=== PATIENT | male | born 1990 | race Caucasian/White ===

== ENCOUNTER 2022-05-18 10:24 | Emergency (ER) | payer MEDICAID, SELFPAY ==
[2022-05-18 10:29] VITALS: BP 129/79; PULSE 82; RESP 16; TEMP 36.7; O2SAT 95; BMI 47.5
--- NOTE | 2022-05-18 11:57 | ED_ITS ---
HPI - Back Pain/Injury General Chief Complaint: Back Pain/Injury Stated Complaint: Back pain Time Seen by Provider: 05/18/22 11:27 Source: patient Mode of arrival: ambulatory Limitations: no limitations History of Present Illness HPI Narrative: 32-year-old male with a history of IV drug abuse who presents to the ER with complaints of mid back pain and right-sided back pain for the last 2 weeks. Patient reports he stood up from the couch and felt a pulling so, straining sensation in his back. Since then pain has been constant. Patient denies any radiation of pain. He denies any numbness, tingling, weakness in his extremities. No numbness described. No bowel or bladder incontinence. No fevers or chills. Patient is ambulatory No urinary symptoms Patient reports he is currently using 3 bundles of IV heroin daily. He denies any history of bacteremia, epidural abscess, osteomyelitis, endocarditis. Cara brock is currently on methadone sign 5 mg daily. He is not interested in going to detox at this time. He would be willing to talk to a continuous improvement coach. Related Data Previous Rx's Medication Instructions Recorded ibuprofen 600 mg tablet 600 mg PO Q8H PRN pain #30 tabs 05/18/22 lidocaine 5 % topical patch 1 patch topical DAILY #15 ea 05/18/22 (Lidoderm) Allergies Allergy/AdvReac Type Severity Reaction Status Date / Time No Known Allergies Allergy Verified 05/18/22 10:32 Review of Systems Review of Systems: Yes all other systems are reviewed and are negative Constitutional: Constitutional: Reports no additional constitutional complaints, Denies body ache(s), Denies chills, Denies fever(s), Denies headache(s) and Denies weakness Eyes: Eyes: Reports no additional eye complaints and Denies change in vision ENT: Reports system reviewed and no additional complaints, except as documented, Denies dizziness, Denies headache(s), Denies nasal congestion, Denies nasal discharge and Denies neck pain Cardiovascular: Cardiovascular: Reports no additional cardiovascular complaints, Denies chest pain, Denies leg edema and Denies dyspnea Respiratory: Respiratory: Reports no additional respiratory complaints, Denies cough and Denies dyspnea Gastrointestinal: Gastrointestinal: Reports no additional gastrointestinal complaints, Denies abdominal pain, Denies diarrhea, Denies nausea and Denies vomiting Genitourinary: Genitourinary: Denies urinary incontinence Musculoskeletal: Musculoskeletal: Reports no additional musculoskeletal complaints, Reports back pain, Denies arthralgias, Denies joint swelling, Denies neck pain, Denies numbness and Denies tingling Integumentary/Breasts: Skin/Breast: Reports system reviewed and no additional complaints, except as docu and Denies rash Neurologic: Reports system reviewed and no additional complaints, except as documented, Denies Abnormal speech present, Denies dizziness, Denies headache(s), Denies numbness, Denies tingling and Denies weakness PMFSH Past Medical History Attestation statement: The following information was validated with the patient. Source: old records reviewed and nursing notes reviewed Social History Social History Smoked in Last 30 Days: Yes Use of substances other than those prescribed or required for medical reasons: Yes Substance Use Type: Heroin Advance Directives: No Advance Directives Information Provided: Yes Physical Exam Vital Signs: Vital Signs: Last Vital Signs Temp 98.0 F 05/18/22 10:29 Pulse 68 05/18/22 14:14 Resp 20 05/18/22 14:14 BP 146/92 H 05/18/22 14:14 Pulse Ox 100 05/18/22 14:14 O2 Del Method Room Air 05/18/22 14:14 BMI result Body Mass Index 47.5 Const: General: cooperative, healthy appearing, comfortable and no acute distress Orientation/consciousness: patient oriented x3 Limitations: no limitations HEENT: Head: Yes normal to inspection Ears: hearing grossly normal bilaterally General nose exam: Normal external nose present Face and sinus: Yes normal facial exam Mouth: Normal oral and palatal mucosa present Throat: Yes posterior oropharynx normal Eyes: General: appearance normal, both eyes and all related structures Pupils: Equal, round and reactive pupils present Neck: Neck: Yes normal visual inspection Chest: Chest palpation & inspection: normal inspection of the chest Resp: Effort & Inspection: normal respiratory effort Auscultation: clear to auscultation bilaterally Cardio: Rate: regular rate Rhythm: regular rhythm Peripheral pulses: Peripheral pulses 2+ throughout GI: Inspection: Yes normal to inspection Palpation (GI): Soft to palpation and nontender Auscultation: normal bowel sounds : General: Yes no CVA tenderness Back/Spine/Pelvis: Other: There is tenderness over the midthoracic spine with no step-offs deformities. There is also tenderness the right thoracic soft tissue area Back: no CVA tenderness Thoracic/Lumbar Spine: thoracic and lumbar spine normal to inspection Skin: General skin exam: no rashes or lesions noted Neuro: General: patient oriented x3, no focal motor deficits and normal sensation to monofilament Cranial nerves: Yes CN's II-XII intact bilaterally, Yes Equal, round and reactive pupils present, Yes Bilaterally intact EOM present, Yes Nystagmus not present, Yes Normal facial strength present and Yes Midline tongue present Cognition (Neuro): normal cognition Speech: No Abnormal speech present Gait exam (Neuro): Normal gait present Motor exam (neuro): 5/5 motor strength present throughout Sensory Exam: Normal double simultaneous stimulation for sensation Deep tendon reflexes (DTR's): Right patellar reflex intensity grade: 2+ and Left patellar reflex intensity grade: 2+ Extrem: General: Yes normal to inspection Course Course Course Narrative: I did review the patient's labs and UA which are unremarkable. His inflammatory markers are negative. I did discuss with both the patient and my attending physician( Dr Gonzalez) at length in regards the patient. I highly doubt epidural abscess or osteomyelitis based on the patient's clinical exam and findings. I did discuss this with the patient and he is aware that he is at high risk for epidural abscess and osteomyelitis however at this time I do not believe this is what is going on. This seems more like muscle strain. I did ask the patient if he feels that he is able to return if he were to develop any worsening symptoms and he tells me he is able to do so. I did review at length any worrisome signs or symptoms of when to return to the emergency room and the patient was agreeable to this. He felt very comfortable with this plan of care and all questions were answered. Medical Decision Making Medical Decision Making MDM Narrative: 31-year-old male here with back pain for the last 2 weeks. Patient initially felt pain when he was standing from a sitting position and felt a straining sensation. There is no radiation of pain, no urinary symptoms, no neurological deficits or red flag symptoms. However, patient has history of IV drug abuse. No reports of fever. On exam patient with midthoracic pain is about or deformities. Normal neuro. Will obtain labs, UA Differential Diagnosis Differential Diagnoses: The differential diagnosis associated with the presentation includes Doubt epidural abscess with normal neurological exam with no reports of neurological red flag symptoms Renal colic, pyelonephritis, lumbar strain Lab Data MDM Lab Attestation statement: I reviewed the patient's lab results. 05/18/22 12:41 05/18/22 12:41 Labs: Lab Results 05/18/22 05/18/22 05/18/22 Range/Units 12:41 12:41 12:41 WBC 8.8 (4.8-10.8) X10*3/uL RBC 4.10 L (4.60-5.80) X10*6/uL Hgb 11.8 L (14.0-18.0) g/dl Hct 37.0 L (42.0-52.0) % MCV 90.2 (80.0-98.0) fL MCH 28.8 (27.0-33.0) pg MCHC 31.9 (31.0-36.0) g/dl RDW 13.5 (11.0-16.0) % Plt Count 214 (160-400) X10*3/uL MPV 9.7 (9.4-12.4) fL Immature Gran % (Auto) 0.6 H (0.0-0.4) % Neut % (Auto) 73.5 H (45-73) % Lymph % (Auto) 18.9 L (20-40) % [place] % (Auto) 6.2 (2-11) % Eos % (Auto) 0.3 (0-4) % Baso % (Auto) 0.5 (0-2) % Lymph # (Auto) 1.7 (1.2-4.9) X10*3/uL [place] # (Auto) 0.6 (0.1-1.2) X10*3/uL Eos # (Auto) 0.0 (0.0-0.4) X10*3/uL Baso # (Auto) 0.0 (0.0-0.2) X10*3/uL Abs Immat Gran (auto) 0.05 H (0.00-0.03) X10*3/uL Absolute Neuts (auto) 6.5 (2.0-8.3) x10*3/uL Absolute Nucleated RBC 0.000 (0.0-0.012) X10*3/uL Nucleated RBC % (auto) 0.0 (0.0-0.2) /100WBC ESR 13 (0-15) MM/HR Sodium 140 (135-145) mmol/L Potassium 4.9 (3.3-5.1) mmol/L Chloride 107 (96-108) mmol/L Carbon Dioxide 24 (22-29) mmol/L Anion Gap 14 (12-20) BUN 14 (9-16) mg/dL Creatinine 0.80 (0.5-1.4) mg/dL Estim Creat Clear Calc 224.3 Estimated GFR > 60 Random Glucose 99 (60-115) mg/dL Calcium 9.2 (8.4-10.2) mg/dL C-Reactive Protein 1.09 H (< or = 0.50) mg/dL Urine Color Urine Appearance Urine pH (5.0-9.0) Ur Specific [place] (1.005-1.025) Urine Protein (Neg-Trace) mg/dL Urine Glucose (UA) (Negative) mg/dL Urine Ketones (Negative) mg/dL Urine Blood (Negative) Urine Nitrite (Negative) Ur Leukocyte Esterase (Negative) Urine RBC (0-2) /HPF Urine WBC (0-5) /HPF Ur Squamous Epith Cells (0-2) /HPF Urine Bacteria (None Seen) Hyaline Casts (0-2) /LPF Granular Casts 05/18/22 Range/Units 12:53 WBC (4.8-10.8) X10*3/uL RBC (4.60-5.80) X10*6/uL Hgb (14.0-18.0) g/dl Hct (42.0-52.0) % MCV (80.0-98.0) fL MCH (27.0-33.0) pg MCHC (31.0-36.0) g/dl RDW (11.0-16.0) % Plt Count (160-400) X10*3/uL MPV (9.4-12.4) fL Immature Gran % (Auto) (0.0-0.4) % Neut % (Auto) (45-73) % Lymph % (Auto) (20-40) % [place] % (Auto) (2-11) % Eos % (Auto) (0-4) % Baso % (Auto) (0-2) % Lymph # (Auto) (1.2-4.9) X10*3/uL [place] # (Auto) (0.1-1.2) X10*3/uL Eos # (Auto) (0.0-0.4) X10*3/uL Baso # (Auto) (0.0-0.2) X10*3/uL Abs Immat Gran (auto) (0.00-0.03) X10*3/uL Absolute Neuts (auto) (2.0-8.3) x10*3/uL Absolute Nucleated RBC (0.0-0.012) X10*3/uL Nucleated RBC % (auto) (0.0-0.2) /100WBC ESR (0-15) MM/HR Sodium (135-145) mmol/L Potassium (3.3-5.1) mmol/L Chloride (96-108) mmol/L Carbon Dioxide (22-29) mmol/L Anion Gap (12-20) BUN (9-16) mg/dL Creatinine (0.5-1.4) mg/dL Estim Creat Clear Calc Estimated GFR Random Glucose (60-115) mg/dL Calcium (8.4-10.2) mg/dL C-Reactive Protein (< or = 0.50) mg/dL Urine Color Dark Yellow Urine Appearance Clear Urine pH 5.5 (5.0-9.0) Ur Specific [place] >= 1.030 H (1.005-1.025) Urine Protein 30 (1+) H (Neg-Trace) mg/dL Urine Glucose (UA) Negative (Negative) mg/dL Urine Ketones Trace (Negative) mg/dL Urine Blood Negative (Negative) Urine Nitrite Negative (Negative) Ur Leukocyte Esterase Negative (Negative) Urine RBC 0-2 (0-2) /HPF Urine WBC 0-5 (0-5) /HPF Ur Squamous Epith Cells 0-2 (0-2) /HPF Urine Bacteria None Seen (None Seen) Hyaline Casts 6-10 (0-2) /LPF Granular Casts Present Social Determinants IV drug abuse-declined interest in detox, did speak to disaster recovery specialist when he was in the ER Discharge Plan Discharge Clinical Impression: Thoracic back pain Patient Disposition: Home, Self-Care Instructions: Back Pain (ED) Additional Instructions: Your blood work, urine testing all is reassuring You may have strained some muscles in your back. No heavy lifting or bending Apply ice or heat to the area Follow-up with primary care doctor for any persistent symptoms We discussed that due to your substance use history your increased risk for epidural abscess which is an abscess within the spinal column and osteomyelitis which is a bone infection in the spine. At this time you have no additional findings that are concerning for this however if you developed fever, numbness/weakness/tingling in your lower extremities, numbness in your groin, incontinence of urine or stool, increase in pain please return to the emergency room so we may perform an MRI of your back Prescriptions: New lidocaine [Lidoderm] 5 % adhesive patch,medicated 1 patch topical DAILY Qty: 15 0RF Rx Instructions: leave on most painful area for up to 12 hrs ibuprofen 600 mg tablet 600 mg PO Q8H PRN (Reason: pain) Qty: 30 0RF Referrals: Physician,Unknown J [Primary Care Provider] - Stand Alone Forms: Work/School Release Interventions: ED Discharge Assessment Last Done: 05/18/22 14:15 Discharge Date/Time: 05/18/22 14:16
[2022-05-18 12:48] LABS: MANUAL DIFF FLAG NO
[2022-05-18 12:55] LABS: Basophils Percent Auto 0.5 % (0-2); Eosinophils Percent Auto 0.3 % (0-4); Hemoglobin 11.8 g/dl (14.0-18.0); Imm Gran Abs Auto 0.05 X10*3/uL (0.00-0.03); Imm Gran Pct Auto 0.6 % (0.0-0.4); Lymphocytes Absolute Auto 1.7 X10*3/uL (1.2-4.9); Lymphocytes Percent Auto 18.9 % (20-40); Mean Corpuscular HGB Conc 31.9 g/dl (31.0-36.0); Mean Corpuscular Hemoglobin 28.8 pg (27.0-33.0); Mean Corpuscular Volume 90.2 fL (80.0-98.0); Mean Platelet Volume 9.7 fL (9.4-12.4); Monocytes Absolute Auto 0.6 X10*3/uL (0.1-1.2); Monocytes Percent Auto 6.2 % (2-11); Neutrophils Absolute Auto 6.5 x10*3/uL (2.0-8.3); Neutrophils Percent Auto 73.5 % (45-73); Platelet Count 214 X10*3/uL (160-400); Red Cell Distribution Width 13.5 % (11.0-16.0); White Blood Count 8.8 X10*3/uL (4.8-10.8)
[2022-05-18 13:06] LABS: Appearance Urine Clear; Color Urine Dark Yellow; Glucose Urine UA Negative (Negative); Leukocyte Esterase Urine Negative (Negative); Nitrite Urine Negative (Negative); PH 5.5 (5.0-9.0); Specific Gravity - Urine >= 1.030 (1.005-1.025); UMIC TRIGGER UACC YES; Urine Blood Negative (Negative); Urine Ketones Trace mg/dL (Negative); Urine Protein 30 (1+) mg/dL (Neg-Trace)
[2022-05-18 13:07] LABS: Anion Gap 14 (12-20); Blood Urea Nitrogen 14 mg/dL (9-16); C Reactive Protein 1.09 mg/dL (< or = 0.50); Calcium 9.2 mg/dL (8.4-10.2); Carbon Dioxide 24 mmol/L (22-29); Chloride 107 mmol/L (96-108); Creatinine Clr Calc Pharmacy 224.3; Estimated Glomerular Filt Rate > 60; Glucose Random 99 mg/dL (60-115); Potassium 4.9 mmol/L (3.3-5.1); Sodium 140 mmol/L (135-145)
[2022-05-18 13:21] LABS: Bacteria Urine None Seen (None Seen); Granular Casts Urine Present; RBC Urine 0-2 /HPF (0-2); Squamous Epithelial Cell Urine 0-2 /HPF (0-2); WBC Urine 0-5 /HPF (0-5)
[2022-05-18 13:52] LABS: Erythrocyte Sedimentation Rate 13 MM/HR (0-15)
--- NOTE | 2022-05-18 13:56 | MHC.RECOVSUP ---
Met with pt in [facility] after pt requested to speak with the recovery team. Pt reporting 3 bundles heroin daily, IV, x 3 months. Pt is currently prescribed 75mg Methadone through [facility] in [place] and receives 13 takes home bottles. 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 Pt is interested in legal recovery specialist, T/W will send referral. Has had success with recovery coaches in the past. Discussed harm reduction, pt does use [facility] and their syringe access program. Pt provided with recovery resources and denies having other questions or concerns at this time.
[2022-05-18 14:14] VITALS: BP 146/92; PULSE 68; RESP 20; O2SAT 100
== END 2022-05-18 14:16 | disposition home or self-care (01) ==
PROVIDERS: Nurse Practitioner Family; Emergency Provider Emergency Medicine
DX: M54.6 Pain in thoracic spine (principal); Z79.899 Other long term (current) drug therapy
CPT/HCPCS: 36415; 80048; 81001; 85025; 85652; 86140; 99283; 99284

== ENCOUNTER 2024-11-22 08:11 | Outpatient (AMB) | payer OTHER, SELFPAY ==
--- NOTE | 2024-11-22 13:07 | A.OFFVIS_ITS ---
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 49.1: Details: Start time: 1pm, End time: 1.35pm ?I spent 30 minutes speaking with the patient on the phone plus an additional 5 minutes reviewing and updating records for a total of 35 minutes HPI Comments Details: Previous weight loss efforts: self diets and exercise Wakes up: 7am, Sleeps: 12am Breakfast: 9am (Bagel) Lunch: skips Dinner: 4pm (rice, pasta, meatballs) Snacks: at night (milk or cake, chocolate) Exercise: has home treadmill (no incline, no calories), bike Beverages: Coffee (5 cups/d with creamer and sugar), Tea: none, Soda: diet Coke daily, Juice: none, ETOH: none PFSH Medical History (Updated 11/22/24 @ 13:09 by Rich Dumont MD) Morbid obesity Surgical History (Updated 10/07/24 @ 11:03 by Lotus Yoo CMA) No history of previous surgery Family History (Updated 10/07/24 @ 11:03 by Lotus Yoo CMA) Mother Thyroid condition Father Mental health disorder Social History (Updated 10/07/24 @ 11:03 by Lotus Yoo CMA) Alcohol intake: never Tobacco use type: Smokeless Tobacco Substance Use Type: Heroin Telehealth Telehealth Telehealth Platform: Telephone Location of provider rendering services: practice address Location of patient: address on file Patient Identification confirmed using: Name, : Yes Telehealth method: voice only Patient verbally consented to treatment: Yes Patient verbally consented to billing insurance company: Yes Patient informed of any privacy concerns related to visit: Yes Minutes spent on Phone/Video with Pt.: 35 Assessment & Plan Assessment & Plan (1) Morbid obesity: Code(s): E66.01 - Morbid (severe) obesity due to excess calories Category: Medical Plan: 1.? Plan for lap sleeve gastrectomy. If diaphragmatic or ventral hernias are present at time of surgery, these will be repaired laparoscopically as well. I emphasized the importance of close follow-up, adherence to instructions and good communication. The surgery does not replace the need to change your lifestlyle which is the cause of the obesity problem. The surgery provides the motivation to try again to change your lifestyle, it reduces the appetite and make the transition to a better lifestyle easier and doubles the amount of weight you would lose compared to doing the lifestyle change without the surgery. You will need to be on a liquid diet with protein shakes for 2 weeks before surgery to maximize weight loss and boost your nutritional status to recover better from surgery and also for the first two weeks after surgery to let the stomach heal before we introduce other foods. After the first 2 weeks we will introduce protein bars and soft foods like scrambled eggs, cottage cheese and yogurt and after the 6th week will introduce meat, fish and cooked vegetables in small amounts. Over time you should be able to eat everything in small amounts. Side effects like nausea, vomiting, heartburn or abdominal pain are not common in the practice unless you are not following in the practice. This operation requires lifetime commitment to following in our practice and communication with me. You will much less weight and experience side effects if you don?t communicate or not following in the practice. Complications are rare and in our practice is about 1/10 of the national average. However, you can develop bleeding that may require transfusion (hasn?t happened for year in the practice), you may from complications (we did not have any deaths in the practice) and infections. Infections are usually a result of breakdown in communication or not understanding or following directions correctly. They are difficult to treat, they can happen during the first 6 weeks, they may require to be in the hospital for weeks or even months, not being able to eat by mouth and you may have drains and surgeries to try and correct the issue. Other risks and complications include possible conversion to an open procedure, leaks, small bowel obstruction, blood clots, cardiac, or pulmonary complications, as senior living complications such as ulcers, insufficient weight loss and vitamin deficiencies. 2. Nutritional counseling. Start with one premade PREMIER protein (buy at [employer] or [employer]) shake (8oz of Premier and NOT the whole bottle) at 8am-10am, one protein bar (Fit Crunch protein bar, buy at [employer], or [employer]) at 11am-1pm, another premade PREMIER protein shake (8oz of Premier and NOT the whole bottle) at 2pm-4pm, dinner at 5pm (12 forks of protein and 12 forks of salad/vegetables), another Fit Crunch protein bar at 7pm-9pm and one more bar at 10pm to midnight. So you do 2 protein shakes, 3 protein bars and one meal per day. Meal to include lean meat (beef, fish, pork, turkey, chicken), or malagasy yogurt, or egg whites, or beans with a salad with olive oil and fruits (berries, pears, apples, kiwi). Avoid salt, breads, potatoes, rice, pasta, desserts. 3. Each shake would be drunk slowly, like coffee in a period of 2 hours. 4. Cut each bar in 4 pieces and eat each piece in 30min ?to make each bar last 2 hours. 5. I emphasized the importance of measuring accurately the food portion and measure it when serving the food in plate 6. The meal portions include 12 full-size forks of meat and 12 full-size forks of salad. You always eat the meat portion but you can replace up to 6 forks for salad/vegetables with rice, potatoes or pasta, or a fruit ?if you like. The less you do it the better weight loss will be. 7. One full-size fork is what it can be scooped on the fork without falling aside and not what can be bit with the fork. Use regular forks like those you find in a typical restaurant. 8.? Please buy the body composition scale we discussed and send me weight measurements as soon as possible and then once a week. Always include your diet and exercise plan. 10. Start stationary bike at a resistance level of 4.0 Increase level by 1.0 every 3 min to a max level of 10.0. Stay at this level for 3 min and then return to level 4.0 and repeat same steps until 300 calories are burned. Goal is to burn 2000 calories per week on exercise 12. Goal is to lose at least 1.5-2lbs per week 13. Goal to lose 10% of your weight before surgery, which is about 40lbs. Ultimate weight goal: 360lbs before surgery 14. Please follow the diet plan exactly without any change. If you don't like something about the plan or you feel hungry you need to communicate with me so I can help you revise the plan. You should not change the plan yourself 15. To be scheduled for EGD to assess the stomach's anatomy. The possibility of biopsies was discussed. Patient needs to avoid use of NSAIDs and aspirin for 1 week prior to EGD. You must be on liquids only the day before your endoscopy. Risks of perforation and bleeding was discussed with the patient. This will be an outpatient procedure with IV sedation. Orders: Orders Insulin Today E66.01 - Morbid (severe) obesity due to excess calories Hemoglobin A1c Today E66.01 - Morbid (severe) obesity due to excess calories Lipid Panel Today E66.01 - Morbid (severe) obesity due to excess calories Vitamin B12 and Folate Today E66.01 - Morbid (severe) obesity due to excess calories C Reactive Protein Today E66.01 - Morbid (severe) obesity due to excess calories Vitamin A Today E66.01 - Morbid (severe) obesity due to excess calories H Pylori Breath Test Today E66.01 - Morbid (severe) obesity due to excess calories Complete Blood Count Auto Diff Today E66.01 - Morbid (severe) obesity due to excess calories IRON PROFILE Today E66.01 - Morbid (severe) obesity due to excess calories Comprehensive Met. Panel Today E66.01 - Morbid (severe) obesity due to excess calories Zinc Today E66.01 - Morbid (severe) obesity due to excess calories Vitamin B1 Today E66.01 - Morbid (severe) obesity due to excess calories TSH reflex Free T4 Today E66.01 - Morbid (severe) obesity due to excess calories Ferritin Today E66.01 - Morbid (severe) obesity due to excess calories Vitamin D 25-OH Total Today E66.01 - Morbid (severe) obesity due to excess calories US abdomen comp w elastography Today E66.01 - Morbid (severe) obesity due to excess calories XR chest 2V Today E66.01 - Morbid (severe) obesity due to excess calories ECG 12 lead EKG Today E66.01 - Morbid (severe) obesity due to excess calories FL upper GI w air Today E66.01 - Morbid (severe) obesity due to excess calories Referrals Behavioral Health Referral E66.01 - Morbid (severe) obesity due to excess calories Nutrition/Dietitian Referral E66.01 - Morbid (severe) obesity due to excess calories
[2024-11-22 13:15] VITALS: BMI 49.1
== END 2024-11-22 13:36 | disposition home or self-care (01) ==
LOC: HO.HBS 08:11
PROVIDERS: Visit Provider Surgery
DX: E66.01 Morbid (severe) obesity due to excess calories (principal)
CPT/HCPCS: 99203

== ENCOUNTER → 2024-12-10 10:40 | Outpatient (REF) | payer MEDICAID, SELFPAY ==
--- OUTSIDE RECORDS SUMMARY | 2024-11-02 17:00 | XMS_ITS ---
Author Organization [facility] Address [address] [place] [address] Care Team Providers Care Assistant Golf Professional Name Role Phone Tahmina Evans Primary Care Provider Migration, Provider Unavailable Unavailable REASON FOR VISIT Mult To [facility] Conversion Encounter Medications Medication SIG (Take, Route, [...] Active Encounters Encounter Location Date Provider Diagnosis [facility] [address] [place] [address] 11/02/2024 Provider Migration Plan Of Treatment No Information Progress Notes * Zane KHANAnjanaOB: 990 (34 yo M)Acc No.[id number]:11/02/2024 Patient: Vel SAMS Provider: :1990 A ge:34 Y S ex:Male Date:11/02/2024 Address:[address] [place], [place] [id number] Pcp:Tahmina Evans Subjective: * Chief Complaints: * [facility] * Medical History: * Medications: [...] Electronic signature of Prov ider Migration on 12/10/2024 at 12:55 PM EDT Sign off status: Pending * Provider: Date: 0 11/02/2024 Generated for Maddie garza/Geremias/Param on: 12:55 PM EDT
--- NOTE | ~2024-12-10 | XR_ITS ---
EXAMINATION: XR CHEST CLINICAL INFORMATION: E66.01 - Morbid (severe) obesity due to excess calories COMPARISON: None available. TECHNIQUE: PA and lateral views. FINDINGS: Poor inspiration. No consolidation, pleural effusion or pneumothorax. Cardiomediastinal silhouette size is normal. Mild multilevel thoracic spondylosis. XR/XR chest 2V IMPRESSION: No acute airspace disease. Electronically signed by: Jones Madsen MD 12/10/2024 11:27 AM EDT
[2024-12-10 11:09] LABS: MANUAL DIFF FLAG NO
--- NOTE | 2024-12-10 11:10 | ECG_ITS ---
Test Reason : OBESITY Blood Pressure : */* mmHG Vent. Rate : 79 BPM Atrial Rate : 79 BPM P-R Int : 166 ms QRS Dur : 82 ms QT Int : 384 ms P-R-T Axes : 72 37 45 degrees QTcB Int : 440 ms Normal sinus rhythm Normal ECG No previous ECGs available Referred By: Rich Dumont Electronically Signed By: BAIRON DAVIS MD
[2024-12-10 12:27] LABS: Hemoglobin A1C 123.7212 umol/L
[2024-12-10 12:29] LABS: Hematocrit 34.8 % (42.0-52.0); Hemoglobin 11.5 g/dl (14.0-18.0); Imm Gran Abs Auto 0.09 X10*3/uL (0.00-0.03); Imm Gran Pct Auto 1.2 % (0.0-0.4); Lymphocytes Absolute Auto 2.4 X10*3/uL (1.2-4.9); Mean Corpuscular HGB Conc 33.0 g/dl (31.0-36.0); Mean Corpuscular Hemoglobin 29.0 pg (27.0-33.0); Mean Corpuscular Volume 87.9 fL (80.0-98.0); NRBC Abs Auto 0.000 X10*3/uL (0.0-0.012); NRBC Pct Auto 0.0 /100WBC (0.0-0.2); Platelet Count 216 X10*3/uL (160-400); Red Blood Count 3.96 X10*6/uL (4.60-5.80); White Blood Count 7.6 X10*3/uL (4.8-10.8)
--- OUTSIDE RECORDS SUMMARY | 2024-12-10 12:55 | XMS_ITS | Patient Health Record ---
Author Organization [facility] Address [address] [place] [address] Care Team Providers Care Associate Media Planner Name Role Phone Tahmina Evans Primary Care Provider [phone] Migration, Provider Unavailable Unavailable Allergies No Known Allergies Reason For Referral No Information Medications Medication SIG (Take, Route, Frequency, Duration) Notes Start Date End Date Status Acetaminophen 325 MG 2 tab(s) orally bonifacio ry 4 hours Active Naproxen 500 MG 1 tab(s) orally 2 times a day Active SEROquel 50 MG 1 tab(s) orally hs Active Nicotine Polacrilex 2 MG 1 GUM chewed every 2 hours for 30 days Active Methadone HCl 10 MG/ML 75 mg orally once a day taking 75mg Active Nicotine 7 MG/24HR 1 PATCH transdermall y once a day for 30 days Active hydrOXYzine HCl 25 MG 1 tab(s) orally tw ice daily as needed Taking at bedtime Active Ibuprofen 600 MG 1 tab(s) orally bid prn Active Clotrimazole 1 % 1 amna applied topically 2 times a day for 7 day(s) 10/09/2019 Active Immunizations Vaccine Route Administration Date Status Comme nts Tdap Unknown 03/14/2012 Administered Influenza Unknown 03/14/2012 Administered DPT/Td Unknown 05/09/2005 Administered OPV Unknown 10/26/1993 Administered MMR Unknown 06/10/1993 Administered MMR Unknown 03/12/1991 Administered Hepatitis B (20 or more) Unknown 08/22/1995 Administered Meningococcal Unknown 05/09/2005 Administered PPD planted Unknown 03/20/2012 Administered PPD negative Unknown 03/22/2012 Administered Hepatitis A IM Intramuscular 03/03/2015 Administered Hepatitis A IM Intramuscular 10/09/2019 Administered PPSV 23 IM Intramuscular 10/09/2019 Administered Hepatitis B (20 or more) IM Intramuscular 11/06/2019 Administered [facility] [id number] Influenza IM Intramuscular 11/06/2019 Administered [facility] 49 [id number] Moderna Covid-19 Vaccine Administration - First Dose (Single Dose 100MCG/0.5ML 1ST) IM Intramuscular 03/11/2021 Administered Social History Tobacco Use: Social History Observation Description Date Details (start date - stop date) Current Smoker NA - NA Tobacco Use Assessment MU Question Answer Notes What is your current smoking status? current smo ker How often do you smoke? every day How many cigarettes a day do you smoke? 6-10 How soon after you wake up do you smoke your fir st cigarette? Within 5 minutes Are you interested in quitting? not ready to jacey t Patient counseled on the nagi gers of tobacco use and advised to quit: 09/24/2019 Section Notes: Housing: Stays at friends [facility] uses for the past 3 yrs as of 2012, since came up from [place] (where mom is) Father lives in area but in public housing. Never stayed at . Housing: Stays at friends ho uses for the past 3 yrs as of 2012, since came up from [employer] (where mom is) Father lives in area but in public housing. Never stayed at . Housing: Stays at friends ho uses for the past 3 yrs as of 2012, since came up from [place] (where mom is) Father lives in area but in public housing. Never stayed at . Housing: Stays at friends ho uses for the past 3 yrs as of 2012, since came up from [place]where mom is) Father lives in area but in public housing. Never stayed at . Housing: Stays at friends ho uses for the past 3 yrs as of 2012, since came up from [place]where mom is) Father lives in area but in public housing. Never stayed at . [facility] [address] 04/2012 Housing: Stays at friends ho uses for the past 3 yrs as of 2012, since came up from [place] (where mom is) Father lives in area but in public housing. Never stayed at . [facility] [address] 04/2012 Housing: Stays at friends ho uses for the past 3 yrs as of 2012, since came up from [place] (where mom is) Father lives in area but in public housing. Never stayed at . [facility] [address] 04/2012 Housing: Stays at friends ho uses for the past 3 yrs as of 2012, since came up from [place]where mom is) Father lives in area but in public housing. Never stayed at [place] [address] [address] 04/2012 Housing: Stays at [employer] uses for the past 3 yrs as of 2012, since came up from [place] (where mom is) Father lives in area but in public housing. Never stayed at [place] [address] [address] 04/2012 Problems Problem Type SNOMED Code ICD Code Onset Dates Problem Status W/U Status Risk Notes Problem Viral hepatitis type C (99625498) Unspecified viral hepatitis C without hepatic coma (B19.20) Active confirmed Problem Anemia (880304972) Anemia, unspecified (D64.9) Active confirmed Problem Morbid obesity (disorder) (137477427) Morbid (severe) obesity due to excess calories (E66.01) Active confirmed Problem Obesity (355680084) Obesity, unspecified (E66.9) Active confirmed Problem Opioid abuse (9808325) Opioid abuse, uncomplicated (F11.10) Active confirmed Heroin and Cocaine. No OD hx MAR: Methadone Health Care Resources: [place] Problem Opioid dependence in remission (529006043) Opioid dependence, in remission (F11.21) Active confirmed Problem Tobacco user (969559140) Nicotine dependence, unspecified, uncomplicated (F17.200) Active confirmed Problem Major depression, single episode (53632204) Major depressive disorder, single episode, unspecified (F32.9) Active confirmed Problem Mental retardation (79757361) Unspecified intellectual disabilities (F79) Active confirmed Problem Insomnia (898470020) Insomnia, unspecified (G47.00) Active confirmed Problem Atopic dermatitis (25761676) Atopic dermatitis, unspecified (L20.9) Active confirmed Problem Spasm of back muscles (641792259) Muscle spasm of back (M62.830) Active confirmed Problem Abnormal feces (556824546) Other fecal abnormalities (R19.5) Active confirmed Problem Localized edema (7565525) Localized edema (R60.0) Active confirmed Problem Body mass index 40+ - severely obese (848103481) Body mass index [BMI] 45.0-49.9, adult (Z68.42) Active confirmed Encounters Encounter Location Date Provider Diagnosis [facility] [address] [place] [address] 11/02/2024 Provider Migration Plan Of Treatment Pending Test Test Name Order Date HIV 10/08/2012 HIV 03/15/2012 Comprehensive Metabolic Panel - [facility] 03/15/2012 Comprehensive Metabolic Panel - [facility] 06/18/2015 Thyroid Panel-[facility] 03/15/2012 Hepatitis ABC Profile 03/15/2012 Treponemal AB with reflex to RPR 013 Treponemal AB with reflex to RPR 013 FibroSURE -HepC - [facility] 06/18/2015 Hep C viral load TMA (ultra sensitive) - [facility] 06/18/2015 VITAMIN B12 10/29/2019 B-TYPE NATRIURETIC PEPTIDE 10/09/2019 CBC 09/30/2019 CBC 01/20/2021 CBC WITH AUTO DIFF 10/29/2019 CHLAMYDIA DNA URINE 01/20/2021 CHLAMYDIA DNA URINE 09/30/2019 COMPREHENSIVE METABOLIC PANEL 09/30/2019 COMPREHENSIVE METABOLIC PANEL 06/10/2020 COMPREHENSIVE METABOLIC PANEL 01/20/2021 C-REACTIVE PROTEIN 10/29/2019 ESR 10/29/2019 FERRITIN 10/29/2019 LIVER FIBROSIS PANEL 09/30/2019 LIVER FIBROSIS PANEL 01/20/2021 LIVER FIBROSIS PANEL 06/10/2020 FOLATE 10/29/2019 GC DNA URINE 01/20/2021 GC DNA URINE 09/30/2019 GLYCOHEMOGLOBIN PROFILE 01/20/2021 GLYCOHEMOGLOBIN PROFILE 09/30/2019 HAPTOGLOBIN 10/29/2019 HCV VIRAL LOAD 01/20/2021 HCV VIRAL LOAD 06/10/2020 HCV VIRAL LOAD 09/30/2019 HEP C VIRAL RNA GENOTYPE 01/20/2021 HEP C VIRAL RNA GENOTYPE 09/30/2019 HEPATITIS A ANTIBODY TOTAL 09/30/2019 HEPATITIS B CORE AB TOTAL 09/30/2019 HEPATITIS B CORE AB TOTAL 01/20/2021 HEPATITIS B SURFACE ANTIBODY 09/30/2019 HEPATITIS B SURFACE ANTIBODY 01/20/2021 HEPATITIS B SURFACE ANTIGEN 09/30/2019 HEPATITIS B SURFACE ANTIGEN 01/20/2021 HIV 1 AND 2 ANTIBODY SCREEN 09/30/2019 HIV 1 AND 2 ANTIBODY SCREEN 01/20/2021 IRON (FE) 10/29/2019 LACTATE DEHYDROGENASE 10/29/2019 LIPID PROFILE 09/30/2019 LIPID PROFILE 01/20/2021 PT/INR 09/30/2019 PT/INR 01/20/2021 RETICULOCYTE COUNT 10/29/2019 TOTAL IRON BINDING CAPACITY 10/29/2019 TREPONEMAL AB 01/20/2021 TREPONEMAL AB 09/30/2019 TSH CASCADE 09/30/2019 TSH CASCADE 01/20/2021 URINALYSIS 10/29/2019 CR Spine Lumbar 2 or 3 Views 12/06/2021 Insurance Providers Payer Name Payer Address Payer Phone Subscriber Number Group Number Insured Name Patient Relationship to Insured Coverage Start Date Coverage End Date [place] C[place] [address] [place], [place] [id number] Vel Morley Self - patient is the insured [employer] [facility] [address] [place] [address] [id number] Vel Morley Self - patient is the insured Medical (General) History Medical History History ICD Code learning trouble -IQ 64 on testing recie daisha rt kidney stone-recent ER visit in June 21 013 @ [facility] Hep C Kidney stone undefined MENTAL RETARDATION NOS hx heroin/cocaine use Surgical History Surgery Date(Month/Year) ? Lithotripsy - unclear. In [place]. 2019 Hospitalization History Reason Date(Month/Year) Detox 12/2020 [facility] for Fever to 106- cellulitis, SI -10/05 ETOH, drug use, SI 02/19/2011 [facility]: SI 09-30-12 [facility] ER for kidney pain 07/10/12 [facility] 04/2012
[2024-12-10 13:15] LABS: Alanine Aminotransferase 43 U/L (0-40); Albumin Level 4.4 g/dL (3.5-5.0); Alkaline Phosphatase 100 U/L (39-117); Anion Gap 11 (12-20); Aspartate Amino Transferase 34 U/L (5-37); Blood Urea Nitrogen 12 mg/dL (9-16); Calcium 9.2 mg/dL (8.4-10.2); Carbon Dioxide 27 mmol/L (22-29); Chloride 108 mmol/L (96-108); Cholesterol 132 mg/dL (<200); Estimated Glomerular Filt Rate > 60; HDL Cholesterol 33 mg/dL (>40); Iron 71 mcg/dL (45-160); Percent Iron Saturation 27 % (15-50); Potassium 4.2 mmol/L (3.3-5.1); Sodium 142 mmol/L (135-145); Total Iron Binding Capacity 262 mcg/dL (228-428); Total Protein 6.8 g/dL (6.5-8.0); Triglycerides 74 mg/dL (<150); Unsaturated Iron Binding 191 ug/dL
[2024-12-10 14:18] LABS: Ferritin 233 ng/mL (20-250)
[2024-12-10 14:30] LABS: Folate 11.4 ng/mL (> or = 4.0); Vitamin B12 341 pg/mL (200-900)
== END ==
LOC: HO.CARD 10:40
PROVIDERS: PCP Internal Medicine; Visit Provider Surgery
DX: E66.01 Morbid (severe) obesity due to excess calories (principal)
CPT/HCPCS: 36415; 71046; 80053; 80061; 82306; 82607; 82728; 82746; 83036; 83525; 83540; 84425; 84443; 84590; 84630; 85025; 86140; 93005

== ENCOUNTER → 2024-12-10 11:10 | Outpatient (BNV) | payer MEDICAID, SELFPAY | PROVIDERS: PCP Internal Medicine; Visit Provider Internal Medicine Cardiovascular Disease | DX: E66.01 Morbid (severe) obesity due to excess calories (principal); Z68.42 Body mass index [BMI] 45.0-49.9, adult | CPT/HCPCS: 93010 ==

== ENCOUNTER → 2024-12-10 11:10 | Outpatient (BNV) | payer MEDICAID, SELFPAY | PROVIDERS: PCP Internal Medicine; Visit Provider Radiology Diagnostic Radiology | DX: E66.01 Morbid (severe) obesity due to excess calories (principal); Z68.41 Body mass index [BMI] 40.0-44.9, adult | CPT/HCPCS: 71046 ==

== ENCOUNTER 2025-01-03 07:55 | Outpatient (REF) | payer OTHER, SELFPAY ==
--- OUTSIDE RECORDS SUMMARY | 2024-11-02 16:00 | XMS_ITS ---
Author Organization [facility] Address [address] [place] [address] Care Team Providers Care Longwall Machine Operator Helper Name Role Phone Tahmina Evans Primary Care Provider [phone] Migration, Provider Unavailable Unavailable REASON FOR VISIT Mult To [facility] Conversion Encounter Medications Medication SIG (Take, Route, Frequency, Duration) Notes Start Date End Date Status Acetaminophen 325 MG 2 tab(s) orally bonifacio ry 4 hours Active Naproxen 500 MG 1 tab(s) orally 2 times a day Active Methadone HCl 10 MG/ML 75 mg orally once a day taking 75mg Active Ibuprofen 600 MG 1 tab(s) orally bid prn Active Clotrimazole 1 % 1 amna applied topically 2 times a day for 7 day(s) 10/09/2019 Active SEROquel 50 MG 1 tab(s) orally hs Active Nicotine Polacrilex 2 MG 1 GUM chewed every 2 hours for 30 days Active Nicotine 7 MG/24HR 1 PATCH transdermall y once a day for 30 days Active hydrOXYzine HCl 25 MG 1 tab(s) orally tw ice daily as needed Taking at bedtime Active Encounters Encounter Location Date Provider Diagnosis [facility] [address] [place] [address] 11/02/2024 Provider Migration Plan Of Treatment No Information Progress Notes * Zane KHANAnjanaOB: 990 (34 yo M)Acc No.[id number]:11/02/2024 Patient: Vel SAMS Provider: :1990 A ge:34 Y S ex:Male Date:11/02/2024 Address:[address] [place], [place] [id number] Pcp:Tahmina Evans Subjective: * Chief Complaints: * [facility] . [facility] * Medical History: * Medications: T aking Methadone HCl 10 MG/ML Concentrate 75 mg orally once a day , Notes to Pharmacist: taking 75mg, Taking Naproxen 500 MG Tablet Delayed Release 1 tab(s) orally 2 times a day , Taking Acetaminophen 325 MG Tablet 2 tab(s) orally every 4 hours , Taking Nicotine Polacrilex 2 MG Gum 1 GUM chewed every 2 hours , Taking SEROquel 50 MG Tablet 1 tab(s) orally hs , Taking hydrOXYzine HCl 25 MG Tablet 1 tab(s) orally twice daily as needed , Notes to Pharmacist: Taking at bedtime, Taking Nicotine 7 MG/24HR Patch 24 Hour 1 PATCH transdermally once a day , Taking Clotrimazole 1 % Cream 1 amna applied topically 2 times a day , Taking Ibuprofen 600 MG Tablet 1 tab(s) orally bid prn Objective: * Vitals: Assessment: Plan: * Treatment: * Images: Billing Information: * Visit Code: * Procedure Codes: * Electronic signature of Prov ider Migration on 01/03/2025 at 07:57 AM EST Sign off status: Pending * Provider: Date: 0 11/02/2024 Generated for Maddie garza/Geremias/Param on: 03/05/2024 07:57 AM EST
--- NOTE | ~2025-01-03 | FL_ITS ---
EXAMINATION: XR FLUOROSCOPY UPPER GI WITH AIR CLINICAL INFORMATION: Obesity. Preop. COMPARISON: None available. TECHNIQUE: Upper GI was performed using thin and thick barium and effervescent granules. FINDINGS: Esophageal motility is normal. No mass or stricture appreciated. No esophageal hernia. No gastroesophageal reflux. The stomach and duodenum are normal appearing. No fold thickening, mass, ulcer or stricture. FLUOROSCOPY TIME: 47 seconds DOSE AREA PRODUCT: 1089 uGy-m2 (microgray-meter squared) FL/FL upper GI w air IMPRESSION: Unremarkable examination. Electronically signed by: Maru Oleary MD 01/03/2025 08:58 AM EST
--- OUTSIDE RECORDS SUMMARY | 2025-01-03 07:58 | XMS_ITS | Patient Health Record ---
Author Organization [facility] Address [address] [place] [address] Care Team Providers Care Sand Car Worker Name Role Phone Tahmina Evans Primary Care Provider Migration, Provider Unavailable Unavailable Allergies No Known [...] (20 or more) IM Intramuscular 11/06/[address] [facility] [phone] Influenza IM Intramuscular 11/06/[address] [facility] [phone] Moderna Covid-19 Vaccine Administration - First Dose [...] as of 2012, since came up from [place] (where mom is) Father lives in area but in public housing. Never stayed at . Housing: Stays at friends ho uses for the past 3 yrs as of 2012, since came up from [place] (where mom is) Father lives in area [...] as of 2012, since came up from [place] (where mom is) Father lives in area but in public housing. Never stayed at . Housing: Stays at friends [facility] uses for the past 3 yrs as of 2012, since came up from [place] (where mom is) Father lives in area but in public housing. Never stayed at . [facility] [address] 04/2012 Housing: Stays at friends ho uses for the past 3 yrs as of 2012, since came up from [place] (where mom is) Father lives in area but in public housing. Never stayed at . [facility] [address] 04/2012 Housing: Stays at friends [facility] uses for the past 3 yrs as of 2012, since came up from [place] (where mom is) Father lives in area but in public housing. Never stayed at . [facility] [address] 04/2012 Housing: Stays at friends [facility] uses for the past 3 yrs as of 2012, since came up from [place] (where mom is) Father lives in area but in public housing. Never stayed at [place] [address] [address] 04/2012 Housing: Stays at [employer] uses for the past 3 yrs as of 2012, since came up from [place] (where mom is) Father lives in area but in public housing. Never stayed at [place] [address] [address] 04/2012 Problems Problem Type SNOMED Code ICD Code Onset Dates Problem Status W/U Status Risk Notes Problem Viral hepatitis type C (96623060) Unspecified viral hepatitis C without hepatic coma (B19.20) Active confirmed Problem Anemia (499281674) Anemia, unspecified (D64.9) Active confirmed Problem Morbid obesity (disorder) (364075390) Morbid (severe) obesity due to excess calories (E66.01) Active confirmed Problem Obesity (867674394) Obesity, unspecified (E66.9) Active confirmed Problem Opioid abuse (8746288) Opioid abuse, uncomplicated (F11.10) Active confirmed Heroin and Cocaine. No OD hx MAR: Methadone Health Care Resources: [place] Problem Opioid dependence in remission (020925474) Opioid dependence, in remission (F11.21) Active confirmed Problem Tobacco user (866066907) Nicotine dependence, unspecified, uncomplicated (F17.200) Active confirmed Problem Major depression, single episode (29448118) Major depressive disorder, single episode, unspecified (F32.9) Active confirmed Problem Mental retardation (93653630) Unspecified intellectual disabilities (F79) Active confirmed Problem Insomnia (422519413) Insomnia, unspecified (G47.00) Active confirmed Problem Atopic dermatitis (40668821) Atopic dermatitis, unspecified (L20.9) Active confirmed Problem Spasm of back muscles (724419827) Muscle spasm of back (M62.830) Active confirmed Problem Abnormal feces (303672481) Other fecal abnormalities (R19.5) Active confirmed Problem Localized edema (9501476) Localized edema (R60.0) Active confirmed Problem Body mass index 40+ - severely obese (827990978) Body mass index [BMI] 45.0-49.9, adult (Z68.42) Active confirmed Encounters Encounter Location Date Provider Diagnosis [facility] [address] [place] [address] 11/02/2024 Provider Migration Plan Of Treatment Pending [...] B CORE AB TOTAL 01/20/2021 HEPATITIS B CORE AB TOTAL 09/30/2019 HEPATITIS B SURFACE ANTIBODY 09/30/2019 HEPATITIS B SURFACE ANTIBODY 01/20/2021 HEPATITIS B SURFACE ANTIGEN 09/30/2019 HEPATITIS B SURFACE ANTIGEN 01/20/2021 HIV 1 AND 2 ANTIBODY SCREEN 09/30/2019 HIV 1 AND 2 ANTIBODY SCREEN 01/20/2021 IRON (FE) 10/29/2019 LACTATE DEHYDROGENASE 10/29/2019 LIPID PROFILE 09/30/2019 LIPID PROFILE 01/20/2021 PT/INR 09/30/2019 PT/INR 01/20/2021 RETICULOCYTE COUNT 10/29/2019 TOTAL IRON BINDING CAPACITY 10/29/2019 TREPONEMAL AB 09/30/2019 TREPONEMAL AB 01/20/2021 TSH CASCADE 09/30/2019 TSH CASCADE 01/20/2021 URINALYSIS 10/29/2019 CR Spine Lumbar 2 or 3 Views 12/06/2021 Insurance Providers Payer Name Payer Address Payer Phone Subscriber Number Group Number Insured Name Patient Relationship to Insured Coverage Start Date Coverage End Date [place] [address] [place], [place] [id number] Vel Morley Self - patient is the insured [place] [employer] [address] [place] [address] [id number] Vel Morley Self - patient is the insured Medical (General) History Medical History History ICD Code learning trouble -IQ 64 on testing recie daisha rt kidney stone-recent ER visit in June 21 013 @ [facility] Hep C Kidney stone undefined MENTAL RETARDATION NOS hx heroin/cocaine use Surgical History Surgery Date(Month/Year) ? Lithotripsy - unclear. In [place]. 2019 Hospitalization History Reason Date(Month/Year) Detox 12/2020 [facility] for Fever to 89- cellulitis, SI -10/05 ETOH, drug use, SI 02/19/2011 [facility]: SI 09-30-12 [facility] ER for kidney pain 07/10/12 [facility] 04/2012
--- OUTSIDE RECORDS SUMMARY | 2025-01-03 07:58 | XMS_ITS | Clinical Summary ---
Author Organization [facility] Address [address] [place] [address] Care Team Providers Care Compliance Review Specialist Name Role Phone Juan J Hunter MD Primary Care Provider [phone] Social History Tobacco Use Types Packs/Day Years Used Date Smoking Tobacco: Never Assessed Sex and Gender Information Value Date Recorded Sex Assigned at Not on file Legal Sex Male 11:14 PM EST Gender Identity Not on file Sexual Orientation Not on file Plan of Treatment Health Maintenance Due Date Last Done Comments DTaP,Tdap,and Td Vaccines (1 - Tdap) 2008 Hepatitis B Vaccines (1 of 3 - 19+ 3-dose series) 2008 HPV Vaccines (1 - 3-dose SCD M series) 2016 Cholesterol Screening (Lipid Panel) 01/23/2022 HIV Screening 01/23/2022 Hepatitis C Screening 01/23/2022 Social Influencers of Health Screening 01/23/2022 Depression Screening 02/21/2024 COVID-19 Vaccine (1 - 2024-2 6 season) 2024 Influenza Vaccine (#1) 2024 RSV Immunization Adult Patie nts (1 - 1-dose 75+ series) 2064 HIB Vaccines Aged Out No longer eligi ble based on patient's age to complete this topic Hepatitis A Vaccines Aged Out No long er eligible based on patient's age to complete this topic IPV Vaccines Aged Out No longer eligi ble based on patient's age to complete this topic MMR Vaccines Aged Out No longer eligi ble based on patient's age to complete this topic Meningococcal ACWY Vaccine Aged Out N o longer eligible based on patient's age to complete this topic Meningococcal B Vaccine Aged Out No l onger eligible based on patient's age to complete this topic Pneumococcal Vaccine: Pediat rics (0 to 5 Years) and At-Risk Patients (6 to 49 Years) Aged Out No longer eligible b ased on patient's age to complete this topic RSV Immunization Patients Un kamryn 20 months Aged Out No longer eligible b ased on patient's age to complete this topic Varicella Vaccines Aged Out No longer eligible based on patient's age to complete this topic Care Teams Compliance Review Specialist Relationship Specialty Start Date End Date Juan J Hunter MD [address] [place] [address] PCP - General 01/10/23
== END 2025-01-03 07:56 | disposition home or self-care (01) ==
LOC: HO.XRAY 07:55
PROVIDERS: PCP Internal Medicine; Visit Provider Surgery
DX: E66.01 Morbid (severe) obesity due to excess calories (principal)
CPT/HCPCS: 74246

== ENCOUNTER → 2025-01-03 07:57 | Outpatient (BNV) | payer OTHER, SELFPAY | PROVIDERS: PCP Internal Medicine; Visit Provider Radiology Diagnostic Radiology | DX: E66.01 Morbid (severe) obesity due to excess calories (principal); Z68.42 Body mass index [BMI] 45.0-49.9, adult | CPT/HCPCS: 74246 ==

== ENCOUNTER 2025-01-03 08:29 | Outpatient (AMB) | payer OTHER, SELFPAY ==
--- NOTE | 2025-01-03 09:00 | MHC.WMTHER ---
Intake Intake Visit Reasons: OV BH Intake Allergies No Known Allergies Allergy (Verified 11/22/24 13:07) COUNT INCLUDES THE [facility] Medical History (Updated 12/16/24 @ 18:22 by Rich Dumont MD) Morbid obesity Surgical History (Updated 10/07/24 @ 11:03 by Lotus Yoo CMA) No history of previous surgery Family History (Updated 10/07/24 @ 11:03 by Lotus Yoo CMA) Mother Thyroid condition Father Mental health disorder Social History (Updated 10/07/24 @ 11:03 by Lotus Yoo CMA) Alcohol intake: never Tobacco use type: Smokeless Tobacco Substance Use Type: Heroin Behavioral Health Assessment Weight Management Therapy Therapy Notes Details The patient is a 34-year-old male presenting for a behavioral health assessment as part of the surgical weight loss program. He was initially referred by his primary care provider. The patient has intermittently used GLP-1 therapy with semaglutide (Wegovy) over the past year, resulting in a weight loss of approximately 30 pounds. He reports difficulty adhering to the prescribed meal plan and has not been following the surgeon?s dietary recommendations. During today?s visit, I provided a printed copy of his meal plan and reviewed the guidelines with him in detail. We also discussed the importance of developing healthy habits and making sustainable lifestyle changes to support long-term success. The assessment was not completed today; the patient will return to continue the evaluation. Living Situation Current Living Situation Rent At risk of losing current housing? No Satisfied with current living situation? Yes Comments PT lives in a shared house, he rents a room and there are other 3 people there. Food/Weight/Diet History/Relationship with food PT reports he tends to engage in boredom eating, he doesn't eat vegetables and mostly eats carbs and meats. He would eat fast food daily for breakfast and for dinner. Example of meals before starting the program: Breakfast: Isaura - large coffee with 3 sugars and 3 creams and toasted bagel with cream cheese. Lunch: Skip Dinner: Home made, pasta with meatballs, rice and pork. Cream of wheat. If take out: Japanese food, McDonalds, pizza, grinders. Snacks: Multiple at day, ice cream, chips, sweets, gummy bears. Drinks/Liquids: cofee: 6 extra large hot cofee with 3 sugars and 3 creams each. Soda: History/Relationship with weight In the last 10 years, the patient's Lowest weight was 220Lbs and highest 415Lbs (2023, before started wegovy) Social History Family history and relationship PT is single and have no children. Parents alive and he has 6 siblings. 2 brothers and 4 sisters. Parental/Familial fall internship obligations None. Developmental history and status Learning issues with reading and writing and attentional issues. 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 Social support Family. Community support Some buddhism community and some friends. Confucianist/Spirituality Spiritism. Cultural/Ethnic information , from [place]. Legal Involvement and History Current or historical involvement with the legal system? None reported. Education Highest grade completed 12th - Didn't graduated. Preferred learning style Learn by doing and Visual Currently enrolled in educational program? No Interested in further educational program? Yes Educational Interests/Skills PT works in [employer] for about 4 years. 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 ) Wants help to find employment? No Meaningful activities Listen to music, buddhism, video games. Financial Situation Describe current financial situation Comfortable and Occasional struggle Financial assistance? None Service Service? No Mental Health and Addiction Treatment Psychiatric history Hx of heroin use was in counseling in the last 2 years. Will explore further at next visit. Medical and Physical Health Summary Additional Medical History not covered in history None aditional Sexual History concerns None reported. Questionnaires PHQ-9 Over the last 2 weeks, how often have you been bothered by any of the following problems? 1. Little interest or pleasure in doing things: several days 2. Feeling down, depressed, or hopeless: not at all 3. Trouble falling or staying asleep, or sleeping too much: not at all 4. Feeling tired or having little energy: several days 5. Poor appetite or overeating: several days 6. Feeling bad about yourself - or that you are a failure or have let yourself or your family down: several days 7. Trouble concentrating on things, such as reading the newspaper or watching television: several days 8. Moving or speaking so slowly that other people could have noticed. Or the opposite - being so fidgety or restless that you have been moving around a lot more than usual: several days 9. Thoughts that you would be better off or of hurting yourself in some way: not at all Total score: 6 Depression Screening Interpretation: Positive (From new PT pack completed on 09/27/24. New one will be administered at next amna. ) Depression Screening Done: Yes Source: Developed by Drs. Teddy Julio, Edie Denton, Parish Guerrero and colleagues, with an educational santa from [employer]. Binge Eating Scale Group 1 A. I don't feel self-conscious about my wt. or body size when I'm with others. B. I feel concerned about how I look to others, but it normally does not make me fell disappointed with myself C. I do get self-conscious about my appearance and wt. which makes me feel disappointed in myself. D. I feel very self-conscious about my wt. and frequently I feel intense shame and disgust for myself. I try to avoid social contacts because of my self-consciousness. Response Group 1: B Group 2 A. I don't have any difficulty eating slowly in the proper manner. B. Although I seem to gobble down foods, I don't end up feeling stuffed because of eating to much. C. At times, I tend to eat quickly and then, I feel uncomfortably full afterwards. D. I have the habit of bolting down my food, without really chewing it. When this happens I usually feel uncomfortably stuffed because I've eaten to much. Response Group 2: C Group 3 A. I feel capable to control my eating urges when I want to. B. I feel like I have failed to control my eating more than the average person. C. I feel utterly helpless when it comes to feeling in control of my eating urges. D. Because I feel so helpless about controlling my eating I have become very desperate about trying to get control. Response Group 3: A Group 4 A. I don't have the habit of eating when I'm bored. B. I sometimes eat when I'm bored, but often I'm able to get busy and get my mind off food. C. I have a regular habit of eating when I'm bored, but occasionally, I can use some other activity to get my mind off eating. D. I have a strong habit of eating when I'm bored. Nothing seems to help me breath the habit. Response Group 4: B Group 5 A. I'm usually physically hungry when I eat something. B. Occasionally, I eat something on impulse even though I really am not hungry. C. I have the regular habit of eating foods, that I might not really enjoy, to satisfy a hungry feeling even though physically, I don't need the food. D. Although I'm not physically hungry, I get a hungry feeling in my mouth that only seems to be satisfied when I eat a food, like sandwich, that fills my mouth. Sometimes, when I eat the food to satisfy my mouth hunger, I then spit the food out so I won't gain weight. Response Group 5: B Group 6 A. I don't feel any guilt or self-hate after I overeat. B. After I overeat, occasionally I feel guilt or self-hate. C. Almost all the time I experience strong guilt or self-hate after I overeat. Response Group 6: B Group 7 A. I don't lose total control of my eating when dieting even after periods when I overeat. B. Sometimes when I eat a forbidden food on a diet, I feel like I blew it and eat even more. C. Frequently, I have the habit of saying to myself, I've blown it now, why not go all the way, when I overeat on a diet. When that happens I eat more. D. I have a regular habit of starting a strict diets for myself but I break the diets by going on an eating binge. My life seems to be either a feast or famine. Response Group 7: B Group 8 A. I rarely eat so much food that I feel uncomfortably stuffed afterwards. B. Usually about once a month, I each such a quantity of food, I end up feeling very stuffed. C. I have regular periods during the month when I eat large amounts of food, either at mealtime or at snacks. D. I eat so much food that I regularly feel quite uncomfortable after eating and sometimes a bit nauseous. Response Group 8: A Group 9 A. My level of calorie intake does not go up very high or go down very low on a regular basis. B. Sometimes after I overeat, I will try to reduce my caloric intake to almost nothing to compensate for the excess calories I've eaten. C. I have a regular habit of overeating during the night. It seems that my routine is not to be hungry in the morning but overeat in the evening. D. In my adult years, I have had week-long periods where I practically starve myself. This follows periods when I overeat. It seems I live a life of either feast or famine. Response Group 9: A Group 10 A. I usually am able to stop eating when I want to. I know when enough is enough. B. Every so often, I experience a compulsion to eat which I can't seem to control. C. Frequently, I experience strong urges to eat which I seem unable to control, but at other times I can control my eating urges. D. I feel incapable of controlling urges to eat. I have a fear of not being able to stop eating voluntarily. Response Group 10: B Group 11 A. I don't have any problem stopping eating when I feel full. B. I usually can stop eating when I feel full but occasionally overeat leaving me feeling uncomfortably stuffed. C. I have a problem stopping eating once I start and usually I feel uncomfortably stuffed after I eat a meal. D. Because I have a problem not being able to stop eating when I want, I sometimes have to induce vomiting to relieve my stuffed feeling. Response Group 11: C Group 12 A. I seem to eat just as much when I'm with others, Family social gatherings as when I'm by myself. B. Sometimes, when I'm with other persons, I don't eat as much as I want to eat because I'm self-conscious about my eating. C. Frequently, I eat only a small amount of food when others are present, because I'm very embarrassed about my eating. D. I feel so ashamed about overeating that I pick times to overeat when I know no one will see me. I feel like a closet eater. Response Group 12: B Group 13 A. I eat three meals a day with only an occasional between meal snack. B. I eat 3 meals a day, but I also normally snack between meals. C. When I am snacking heavily, I get in the habit of skipping regular meals. D. There are regular periods when I seem to be continually eating, with no planned meals. Response Group 13: B Group 14 A. I don't think much about trying to control unwanted eating urges. B. At least some of the time, I feel my thoughts are pre-occupied with trying to control my eating urges. C. I feel that frequently I spend much time thinking about how much I ate or about trying not to eat anymore. D. It seems to me that most of my waking hours are pre-occupied by thoughts about eating or not eating. I feel like I'm constantly struggling not to eat. Response Group 14: A Group 15 A. I don't think about food a great deal. B. I have strong craving for food but they last only for brief periods of time. C. I have days when I can't seem to think about anything else but food. D. Most of my days seem to be pre-occupied with thoughts about food. I feel like I live to eat. Response Group 15: B Group 16 A. I usually know whether or not I'm physically hungry. I take the right portion of food to satisfy me. B. Occasionally, I feel uncertain about knowing whether or not I'm physically hungry. A these times it's hard to know how much food I should take to satisfy me. C. Even though I might know how many calories I should eat, I don't have any idea what is a normal amount of food for me. Response Group 16: A Binge Eating Score: 13 Score less than 17 Minimal Risk Score between 18-26 Moderate Risk Score between 27-46 High Risk Assessment & Plan Assessment & Plan (1) History of substance abuse: Code(s): F19.11 - Other psychoactive substance abuse, in remission (2) Pre-bariatric surgery psychological evaluation: Code(s): Z71.89 - Other specified counseling Plan The patient was not cleared today as the assessment was not completed. The patient will return in 2-4 weeks to continue the evaluation. Next appointment: 01/20/2025 at 2pm, video. [place] [address] Psy Diag Eval Patient Type New Diagnoses History of substance abuse F19.11 Pre-bariatric surgery psychological evaluation Z71.89 Time Spent (min) 60
== END 2025-01-03 10:09 | disposition home or self-care (01) ==
LOC: HO.HBST 08:30
PROVIDERS: PCP Internal Medicine; Visit Provider Counselor Mental Health
DX: F19.11 Other psychoactive substance abuse, in remission (principal); Z71.89 Other specified counseling
CPT/HCPCS: 90791

== ENCOUNTER 2025-01-20 14:17 | Outpatient (AMB) | payer OTHER, SELFPAY ==
--- NOTE | 2025-01-20 14:10 | MHC.WMTHER ---
Intake Intake Visit Reasons: VIDEO BH Intake Part 2 Allergies No Known Allergies Allergy (Verified 11/22/24 13:07) [facility] Medical History (Updated 12/16/24 @ 18:22 by Rich Dumont MD) Morbid obesity Surgical History (Updated 10/07/24 @ 11:03 by Lotus Yoo CMA) No history of previous surgery Family History (Updated 10/07/24 @ 11:03 by Lotus Yoo CMA) Mother Thyroid condition Father Mental health disorder Social History (Updated 10/07/24 @ 11:03 by Lotus Yoo CMA) Alcohol intake: never Tobacco use type: Smokeless Tobacco Substance Use Type: Heroin Behavioral Health Assessment Weight Management Therapy Therapy Notes Details The patient is a 34-year-old male presenting for f/up visit to complete behavioral health assessment as part of the surgical weight loss program. He was initially referred by his primary care provider. The patient has intermittently used GLP-1 therapy with semaglutide (Wegovy) over the past year, resulting in a weight loss of approximately 30 pounds. Presenting Concerns Referral Source WMP Provider Reason for referral Completion of behavioral health assessment as part of process for weight-loss surgery. Precipitating Event Obesity Living Situation Current Living Situation Rent At risk of losing current housing? No Satisfied with current living situation? Yes Comments PT lives in a shared house, he rents a room and there are other 3 people there. Food/Weight/Diet Expectations of change PT started the program at 392 lbs, and the initial goal is to lose 10% of your weight before surgery, which is about 40lbs. Ultimate weight goal: 360lbs before surgery. PT reports weight gain as he has not been consistent w/ meal and exercise plan, recent weight was 406Lbs. PT is implementing the following: Current meal plan: 2 protein shakes, 3 protein bars, and one meal per day. Exercise plan: stationary bike Scale: yes Communication with provider: Tuesdays. History/Relationship with food PT reports he tends to engage in boredom eating, he doesn't eat vegetables and mostly eats carbs and meats. He would eat fast food daily for breakfast and for dinner. Example of meals before starting the program: Breakfast: Isaura - large coffee with 3 sugars and 3 creams and toasted bagel with cream cheese. Lunch: Skip Dinner: Home made, pasta with meatballs, rice and pork. Cream of wheat. If take out: Swedish food, McDonal[employer], pizza, grinders. Snacks: Multiple at day, ice cream, chips, sweets, gummy bears. Drinks/Liquids: cofee: 6 extra large hot cofee with 3 sugars and 3 creams each. Soda: History/Relationship with weight PT reports he was skinny in childhood, in HS he started gaining weight as he started learning to cook and was eating a lot of junk food. He recalls being under 200Lbs in HS, as an adult he was 200-240 for several years. He he has noticed major weight gain after quitting MCCARTY and starting mehtadone tx 3 years ago. In the last 10 years, the patient's Lowest weight was 220Lbs and highest 415Lbs (2023, before started wegovy) History/Relationship with dieting Wegovy, fasting, gym, self-diets. Social History Family history and relationship PT is single and have no children. Parents alive and he has 6 siblings. 2 brothers and 4 sisters. 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 Developmental history and status Learning issues with reading and writing and attentional issues. 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 Social support Family. Community support Some confucianism community and some friends. Episcopalian/Spirituality Gnosticist. Cultural/Ethnic information , from [place]. Legal Involvement and History Current or historical involvement with the legal system? Legal issues in 2020. Education Highest grade completed 12th - Didn't graduated. Preferred learning style Learn by doing and Visual Currently enrolled in educational program? No Interested in further educational program? Yes Educational Interests/Skills PT works in [employer] field for about 4 years. 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 ) Wants help to find employment? No Meaningful activities Listen to music, confucianism, video games. Financial Situation Describe current financial situation Comfortable and Occasional struggle Financial assistance? None Service Service? No Mental Health and Addiction Treatment Current/Past substance abuse? Yes Comments Alcohol: None Cigarettes/Tobacco: 1 box at day Cannabis/Edibles: none. Started Percocet, then moved into Cocaine and ended using Heroin injected. He started at age 17 and stop using 3 years ago. Current/Past addictive behavior concerns? No Psychiatric history The patient is currently engaged in Medication-Assisted Treatment (MAT) at [facility] in [place] and receives substance use counseling. He is prescribed take-home medication bottles every 13 days and meets with his counselor via Telehealth. He has a history of approximately seven detoxification program admissions and has completed three residential treatment programs?twice at [facility] and once at [facility]. In the past, he participated in outpatient counseling, with his last therapeutic relationship ending 2?3 years ago due to changes in insurance coverage. The patient is not aware of any formal mental health diagnoses such as depression or anxiety. He reports a history of learning disabilities in childhood and engaged in self-harming behaviors (cutting on his arms) around age 16. Substance use began at age 17. He denies any current or recent suicidal ideation or suicide attempts and reports no self-harming behaviors since 2019. Medical and Physical Health Summary Additional Medical History not covered in history None aditional Sexual History concerns None reported. Physical exam in the last year? Yes Pain Screening Current pain? No Pain in the last few months? Yes Comments Low back pain. Medications Is the patient compliant with medications? Yes Does the patient have Hicks Guardian in place? Not applicable Does the patient use complimentary health approaches? No Trauma/Abuse History History of trauma? No Questionnaires PHQ-9 Over the last 2 weeks, how often have you been bothered by any of the following problems? 1. Little interest or pleasure in doing things: not at all 2. Feeling down, depressed, or hopeless: not at all 3. Trouble falling or staying asleep, or sleeping too much: several days (Trouble falling) 4. Feeling tired or having little energy: not at all 5. Poor appetite or overeating: not at all 6. Feeling bad about yourself - or that you are a failure or have let yourself or your family down: several days 7. Trouble concentrating on things, such as reading the newspaper or watching television: several days 8. Moving or speaking so slowly that other people could have noticed. Or the opposite - being so fidgety or restless that you have been moving around a lot more than usual: not at all 9. Thoughts that you would be better off or of hurting yourself in some way: not at all Total score: 3 Depression Screening Interpretation: Negative Depression Screening Done: Yes 35726 - PHQ-9 Billing: Yes Source: Developed by Drs. Teddy Julio, Edie Denton, Parish Guerrero and colleagues, with an educational santa from [employer]. Binge Eating Scale Group 1 A. I don't feel self-conscious about my wt. or body size when I'm with others. B. I feel concerned about how I look to others, but it normally does not make me fell disappointed with myself C. I do get self-conscious about my appearance and wt. which makes me feel disappointed in myself. D. I feel very self-conscious about my wt. and frequently I feel intense shame and disgust for myself. I try to avoid social contacts because of my self-consciousness. Response Group 1: B Group 2 A. I don't have any difficulty eating slowly in the proper manner. B. Although I seem to gobble down foods, I don't end up feeling stuffed because of eating to much. C. At times, I tend to eat quickly and then, I feel uncomfortably full afterwards. D. I have the habit of bolting down my food, without really chewing it. When this happens I usually feel uncomfortably stuffed because I've eaten to much. Response Group 2: C Group 3 A. I feel capable to control my eating urges when I want to. B. I feel like I have failed to control my eating more than the average person. C. I feel utterly helpless when it comes to feeling in control of my eating urges. D. Because I feel so helpless about controlling my eating I have become very desperate about trying to get control. Response Group 3: A Group 4 A. I don't have the habit of eating when I'm bored. B. I sometimes eat when I'm bored, but often I'm able to get busy and get my mind off food. C. I have a regular habit of eating when I'm bored, but occasionally, I can use some other activity to get my mind off eating. D. I have a strong habit of eating when I'm bored. Nothing seems to help me breath the habit. Response Group 4: B Group 5 A. I'm usually physically hungry when I eat something. B. Occasionally, I eat something on impulse even though I really am not hungry. C. I have the regular habit of eating foods, that I might not really enjoy, to satisfy a hungry feeling even though physically, I don't need the food. D. Although I'm not physically hungry, I get a hungry feeling in my mouth that only seems to be satisfied when I eat a food, like sandwich, that fills my mouth. Sometimes, when I eat the food to satisfy my mouth hunger, I then spit the food out so I won't gain weight. Response Group 5: B Group 6 A. I don't feel any guilt or self-hate after I overeat. B. After I overeat, occasionally I feel guilt or self-hate. C. Almost all the time I experience strong guilt or self-hate after I overeat. Response Group 6: B Group 7 A. I don't lose total control of my eating when dieting even after periods when I overeat. B. Sometimes when I eat a forbidden food on a diet, I feel like I blew it and eat even more. C. Frequently, I have the habit of saying to myself, I've blown it now, why not go all the way, when I overeat on a diet. When that happens I eat more. D. I have a regular habit of starting a strict diets for myself but I break the diets by going on an eating binge. My life seems to be either a feast or famine. Response Group 7: B Group 8 A. I rarely eat so much food that I feel uncomfortably stuffed afterwards. B. Usually about once a month, I each such a quantity of food, I end up feeling very stuffed. C. I have regular periods during the month when I eat large amounts of food, either at mealtime or at snacks. D. I eat so much food that I regularly feel quite uncomfortable after eating and sometimes a bit nauseous. Response Group 8: A Group 9 A. My level of calorie intake does not go up very high or go down very low on a regular basis. B. Sometimes after I overeat, I will try to reduce my caloric intake to almost nothing to compensate for the excess calories I've eaten. C. I have a regular habit of overeating during the night. It seems that my routine is not to be hungry in the morning but overeat in the evening. D. In my adult years, I have had week-long periods where I practically starve myself. This follows periods when I overeat. It seems I live a life of either feast or famine. Response Group 9: A Group 10 A. I usually am able to stop eating when I want to. I know when enough is enough. B. Every so often, I experience a compulsion to eat which I can't seem to control. C. Frequently, I experience strong urges to eat which I seem unable to control, but at other times I can control my eating urges. D. I feel incapable of controlling urges to eat. I have a fear of not being able to stop eating voluntarily. Response Group 10: B Group 11 A. I don't have any problem stopping eating when I feel full. B. I usually can stop eating when I feel full but occasionally overeat leaving me feeling uncomfortably stuffed. C. I have a problem stopping eating once I start and usually I feel uncomfortably stuffed after I eat a meal. D. Because I have a problem not being able to stop eating when I want, I sometimes have to induce vomiting to relieve my stuffed feeling. Response Group 11: C Group 12 A. I seem to eat just as much when I'm with others, Family social gatherings as when I'm by myself. B. Sometimes, when I'm with other persons, I don't eat as much as I want to eat because I'm self-conscious about my eating. C. Frequently, I eat only a small amount of food when others are present, because I'm very embarrassed about my eating. D. I feel so ashamed about overeating that I pick times to overeat when I know no one will see me. I feel like a closet eater. Response Group 12: B Group 13 A. I eat three meals a day with only an occasional between meal snack. B. I eat 3 meals a day, but I also normally snack between meals. C. When I am snacking heavily, I get in the habit of skipping regular meals. D. There are regular periods when I seem to be continually eating, with no planned meals. Response Group 13: B Group 14 A. I don't think much about trying to control unwanted eating urges. B. At least some of the time, I feel my thoughts are pre-occupied with trying to control my eating urges. C. I feel that frequently I spend much time thinking about how much I ate or about trying not to eat anymore. D. It seems to me that most of my waking hours are pre-occupied by thoughts about eating or not eating. I feel like I'm constantly struggling not to eat. Response Group 14: A Group 15 A. I don't think about food a great deal. B. I have strong craving for food but they last only for brief periods of time. C. I have days when I can't seem to think about anything else but food. D. Most of my days seem to be pre-occupied with thoughts about food. I feel like I live to eat. Response Group 15: B Group 16 A. I usually know whether or not I'm physically hungry. I take the right portion of food to satisfy me. B. Occasionally, I feel uncertain about knowing whether or not I'm physically hungry. A these times it's hard to know how much food I should take to satisfy me. C. Even though I might know how many calories I should eat, I don't have any idea what is a normal amount of food for me. Response Group 16: A Binge Eating Score: 13 Score less than 17 Minimal Risk Score between 18-26 Moderate Risk Score between 27-46 High Risk Assessment & Plan Assessment & Plan (1) History of substance abuse: Code(s): F19.11 - Other psychoactive substance abuse, in remission (2) Pre-bariatric surgery psychological evaluation: Code(s): Z71.89 - Other specified counseling Plan The patient has been cleared from a behavioral health standpoint and can be submitted for insurance approval when ready. Ongoing behavioral health support will be provided both pre- and post-operatively to assist with adherence to meal and exercise plans, facilitate lifestyle changes, and support goal setting. Next appointment: 03/10/2025 at 2pm, Video Telehealth Telehealth Telehealth Platform: [email or web address] Location of provider rendering services: other (Home office. [place], [place]) Location of patient: address on file Patient Identification confirmed using: Name, : Yes Telehealth method: video Patient verbally consented to treatment: Yes Patient verbally consented to billing insurance company: Yes Patient informed of any privacy concerns related to visit: Yes Minutes spent on Phone/Video with Pt.: 55 Coding [place] [address] Tele Psytx >53 mins Patient Type Established Diagnoses History of substance abuse F19.11 Pre-bariatric surgery psychological evaluation Z71.89 Additional Codes PHQ-9 - 32500 - PHQ-9 Billing: Yes ([id number]) Time Spent (min) 55
--- OUTSIDE RECORDS SUMMARY | 2025-01-20 17:42 | XMS_ITS | Clinical Summary ---
Author Organization [facility] Address [address] [place] [address] Care Team Providers Care Bible Worker Name Role Phone Juan J Hunter MD Primary Care Provider [phone] Social History Tobacco Use Types Packs/Day Years [...] age to complete this topic Care Teams Bible Worker Relationship Specialty Start Date End Date Juan J Hunter MD [address] [place] [address] PCP - General 01/10/23
== END 2025-01-20 14:54 | disposition home or self-care (01) ==
LOC: HO.HBST 14:17
PROVIDERS: PCP Internal Medicine; Visit Provider Counselor Mental Health
DX: F19.11 Other psychoactive substance abuse, in remission (principal); Z71.89 Other specified counseling
CPT/HCPCS: 90837